=== PATIENT | female | born 2000 | race American Indian/Alaskan Native ===

== ENCOUNTER 2019-09-10 20:45 | Emergency (ER) | payer OTHER ==
[2019-09-10] MEDS ORDERED: diphenhydrAMINE 50 MG/ML VIAL IV ONE (21:07)
[2019-09-10] MEDS ORDERED: dexAMETHasone 20 MG/5 ML VIAL IV ONE (21:07)
[2019-09-10] MEDS ORDERED: ONDANSETRON 4 MG/2 ML INJ IV ONE (21:07)
[2019-09-10] MEDS ORDERED: SODIUM CHLORIDE 0.9% 1000 ML 1,000 ML IV ONE (21:07)
[2019-09-10] MEDS ORDERED: FAMOTIDINE 20 MG/2 ML INJ IV ONE (21:07)
--- NOTE | 2019-09-10 21:12 | Emergency Department Report ---
ED General Adult HPI - General Chief complaint: Allergic Reaction Stated complaint: ALLERGIC REACTION Time Seen by Provider: 09/10/19 21:05 Source: patient Mode of arrival: Ambulatory Limitations: No Limitations - History of Present Illness Initial comments: 19-year-old -Chinese female presents to the emergency room for allergic reaction. Patient comes in with swelling to her face eyes nausea mild discomfort of breathing. Patient states that she had a protein bar that was given to her by her sister. Patient does admit that she has a peanut allergy. Patient reports she is not aware if the protein bar head peanuts. Patient denies any pain. Onset/Timin -: minutes(s) (Prior to arrival) Location: face, chest, abdomen Severity scale (0 -10): 8 Consistency: constant Improves with: none Worsens with: none Associated Symptoms: denies other symptoms - Related Data Previous Rx's Medication Instructions Recorded Last Taken Type Cetirizine HCl [Zyrtec 10mg tab] 10 mg PO QDAY 10 Days #10 tablet 09/10/19 Unknown Rx EPINEPHrine [Epipen 2-Russ] 0.3 mg IJ ONCE #2 auto.injct 09/10/19 Unknown Rx Famotidine [Pepcid] 20 mg PO BID 5 Days #10 tablet 09/10/19 Unknown Rx Ondansetron [Zofran Odt] 4 mg PO Q8HR #12 tab.rapdis 09/10/19 Unknown Rx Prednisone [predniSONE 5 mg (6-Day 5 mg PO .TAPER #1 tab.ds.pk 09/10/19 Unknown Rx Pack, 21 Tabs)] Allergies Allergy/AdvReac Type Severity Reaction Status Date / Time peanut Allergy Hives Verified 09/10/19 21:06 ED Review of Systems ROS: Stated complaint: ALLERGIC REACTION Other details as noted in HPI Comment: All other systems reviewed and negative ED Past Medical Hx - Past Medical History Previous Medical History?: Yes Hx Asthma: Yes Additional medical history: Eczema - Surgical History Past Surgical History?: No - Social History Smoking Status: Former Smoker Substance Use Type: None - Medications Home Medications: Home Medications Medication Instructions Recorded Confirmed Last Taken Type Cetirizine HCl [Zyrtec 10mg tab] 10 mg PO QDAY 10 Days #10 tablet 09/10/19 Unknown Rx EPINEPHrine [Epipen 2-Russ] 0.3 mg IJ ONCE #2 auto.injct 09/10/19 Unknown Rx Famotidine [Pepcid] 20 mg PO BID 5 Days #10 tablet 09/10/19 Unknown Rx Ondansetron [Zofran Odt] 4 mg PO Q8HR #12 tab.rapdis 09/10/19 Unknown Rx Prednisone [predniSONE 5 mg (6-Day 5 mg PO .TAPER #1 tab.ds.pk 09/10/19 Unknown Rx Pack, 21 Tabs)] ED Physical Exam - General Limitations: No Limitations General appearance: alert, in distress - Head Head exam: Present: atraumatic, normocephalic - Eye Eye exam: Present: periorbital swelling - ENT ENT exam: Present: mucous membranes moist - Neck Neck exam: Present: normal inspection, full ROM - Respiratory Respiratory exam: Present: normal lung sounds bilaterally. Absent: respiratory distress - Cardiovascular Cardiovascular Exam: Present: tachycardia - GI/Abdominal GI/Abdominal exam: Present: soft. Absent: distended, tenderness - Neurological Exam Neurological exam: Present: alert, oriented X3 - Psychiatric Psychiatric exam: Present: normal affect, normal mood - Skin Skin exam: Present: erythema, urticaria ED Course Vital Signs 09/10/19 20:54 Temperature 98.2 F Pulse Rate 128 H Respiratory 20 Rate Blood Pressure 135/73 O2 Sat by Pulse 100 Oximetry ED Medical Decision Making - Medical Decision Making 19-year-old -Chinese female presents to the emergency room for allergic reaction. Patient comes in with swelling to her face eyes nausea mild discomfort of breathing. Patient states that she had a protein bar that was given to her by her sister. Patient does admit that she has a peanut allergy. Patient reports she is not aware if the protein bar head peanuts. Patient denies any pain. Patient was given the allergic reaction combo of Pepcid, Zofran, Benadryl, dexamethasone. Patient was reevaluated and states that the itching has improved she still feels nauseated. Patient also received 1 L of normal saline. Patient will be given Reglan 10 mg IV. Patient will be discharged home on a prednisone pack, instructed to take [id number] Zyrtec's or Claritin or Linnette. She will also be instructed to take Pepcid 20 mg twice a day for the next 3 days. Patient will be written a prescription for EpiPen and to use it if she has another allergic reaction with shortness of breath or feeling like her throat is closed. Critical care attestation.: If time is entered above; I have spent that time in minutes in the direct care of this critically ill patient, excluding procedure time. ED Disposition Clinical Impression: Allergic reaction to peanut Disposition: DC-01 TO HOME OR SELFCARE Is pt being admited?: No Does the pt Need Aspirin: No Condition: Stable Instructions: Urticaria (ED), Food Allergy (ED) Additional Instructions: Take medications as prescribed. Please avoid eating any foods that contain peanuts. Also look for things that contain peanut powder oil. Stay away from any nuts until you are evaluated by an radius corner machine operator. Prescriptions: EPINEPHrine [Epipen 2-Russ] 0.3 mg IJ ONCE #2 auto.injct Famotidine [Pepcid] 20 mg PO BID 5 Days #10 tablet Prednisone [predniSONE 5 mg (6-Day Pack, 21 Tabs)] 5 mg PO .TAPER #1 tab.ds.pk Ondansetron [Zofran Odt] 4 mg PO Q8HR #12 tab.rapdis Cetirizine HCl [Zyrtec 10mg tab] 10 mg PO QDAY 10 Days #10 tablet Referrals: Your, primary care provider [Other] - 3-5 Days MABEL CROWE MD [Staff Physician] - 3-5 Days Forms: Work/School Release Form(ED)
[2019-09-10] MEDS ORDERED: METOCLOPRAMIDE 10 MG/2 ML INJ IV ONE (22:11)
[2019-09-10 22:59] VITALS: BP 137/75
== END 2019-09-10 22:57 | disposition home or self-care (01) ==
LOC: ED 20:45
DX: T78.1XXA Other adverse food reactions, not elsewhere classified, initial encounter (principal); X58.XXXA Exposure to other specified factors, initial encounter
CPT/HCPCS: 96374; 96375; 99282; J1100; J1200; J2405; J2765; J7030

== ENCOUNTER 2019-12-11 21:44 | Emergency (ER) | payer OTHER ==
[2019-12-11 22:09] VITALS: BP 135/78
--- NOTE | 2019-12-12 01:54 | Emergency Department Report ---
ED Chest Pain HPI - General Chief Complaint: Chest Pain Stated Complaint: CHEST PAIN Source: patient Mode of arrival: Ambulatory Limitations: No Limitations - History of Present Illness Initial Comments: Patient is a nulliparous 19-year-old -[place]ian female with no past medical history except anxiety and chronic chest pain who presents to the ED with complaint of acute onset persistent intermittent diffuse chest wall pain with intermittent shortness of breath for the last 1 week, worse in the last 2 days. Patient states that the pain is intermittent, pressure-like and whenever it occurs she also experiences shortness of breath. Patient states that the symptoms have been going on for 6 years and she has never been worked up for any cardiac pathology although she does not have any cardiac risk factors. Patient denies dizziness, syncope, diaphoresis, nausea, vomiting, abdominal pain, neck pain, fever, chills, cough, heavy lifting, traumatic fall or back pain. Patient denies cigarette smoking, alcohol consumption or illegal drug use but admits taking oral contraceptive pills. MD Complaint: chest pain, other (pleuritic chest pain; dyspnea) -: Gradual, year(s) (6) Onset: during exertion Pain Location: substernal, left chest Pain Radiation: none Severity: moderate Severity scale (0 -10): 4 Quality: aching, pressure Improves With: rest Worsens With: exertion, palpation, movement re: dyspnea. denies: nausea, vomting, diaphoresis, sense of impending doom Other Symptoms: denies: cough, fever, syncope, rash, leg swelling, palpitations, burping Treatments Prior to Arrival: none Aspirin use within the Past 7 Days: (0) No - Related Data On Oral Contraceptives: Yes Previous Rx's Medication Instructions Recorded Last Taken Type Cetirizine HCl [Zyrtec 10mg tab] 10 mg PO QDAY 10 Days #10 tablet 09/10/19 Unknown Rx EPINEPHrine [Epipen 2-Russ] 0.3 mg IJ ONCE #2 auto.injct 09/10/19 Unknown Rx Famotidine [Pepcid] 20 mg PO BID 5 Days #10 tablet 09/10/19 Unknown Rx Ondansetron [Zofran Odt] 4 mg PO Q8HR #12 tab.rapdis 09/10/19 Unknown Rx Prednisone [predniSONE 5 mg (6-Day 5 mg PO .TAPER #1 tab.ds.pk 04/01/20 Unknown Rx Pack, 21 Tabs)] Naproxen 500 mg PO Q12H PRN #20 tablet 12/12/19 Unknown Rx hydrOXYzine PAMOATE [Vistaril] 25 mg PO Q6HR PRN #30 capsule 12/12/19 Unknown Rx Allergies Allergy/AdvReac Type Severity Reaction Status Date / Time peanut Allergy Hives Verified 09/10/19 21:06 Heart Score - HEART Score History: Slightly suspicious EKG: Normal Age: < 45 Risk factors: No known risk factors Troponin: < normal limit HEART Score: 0 - Critical Actions Critical Actions: 0-3 pts:0.9-1.7%risk of adverse cardiac event.Candidate for discharge ED Review of Systems ROS: Stated complaint: CHEST PAIN Other details as noted in HPI Constitutional: denies: chills, fever Eyes: denies: eye pain, eye discharge, vision change ENT: denies: ear pain, throat pain Respiratory: shortness of breath. denies: cough, wheezing Cardiovascular: chest pain. denies: palpitations Endocrine: no symptoms reported Gastrointestinal: denies: abdominal pain, nausea, vomiting, diarrhea Genitourinary: denies: urgency, dysuria, discharge Musculoskeletal: denies: back pain, joint swelling, arthralgia Skin: denies: rash, lesions Neurological: denies: headache, weakness, paresthesias Psychiatric: denies: anxiety, depression Hematological/Lymphatic: denies: easy bleeding, easy bruising ED Past Medical Hx - Past Medical History Hx Asthma: Yes Additional medical history: Eczema - Social History Smoking Status: Never Smoker Substance Use Type: None - Medications Home Medications: Home Medications Medication Instructions Recorded Confirmed Last Taken Type Cetirizine HCl [Zyrtec 10mg tab] 10 mg PO QDAY 10 Days #10 tablet 09/10/19 Unknown Rx EPINEPHrine [Epipen 2-Russ] 0.3 mg IJ ONCE #2 auto.injct 09/10/19 Unknown Rx Famotidine [Pepcid] 20 mg PO BID 5 Days #10 tablet 09/10/19 Unknown Rx Ondansetron [Zofran Odt] 4 mg PO Q8HR #12 tab.rapdis 09/10/19 Unknown Rx Prednisone [predniSONE 5 mg (6-Day 5 mg PO .TAPER #1 tab.ds.pk 09/10/19 Unknown Rx Pack, 21 Tabs)] Naproxen 500 mg PO Q12H PRN #20 tablet 12/12/19 Unknown Rx hydrOXYzine PAMOATE [Vistaril] 25 mg PO Q6HR PRN #30 capsule 12/12/19 Unknown Rx ED Physical Exam - General Limitations: No Limitations General appearance: alert, in no apparent distress, anxious - Head Head exam: Present: atraumatic, normocephalic - Eye Eye exam: Present: normal appearance, PERRL, EOMI. Absent: scleral icterus, conjunctival injection, nystagmus Pupils: Present: normal accommodation - ENT ENT exam: Present: normal exam, normal orophraynx, mucous membranes moist, TM's normal bilaterally, normal external ear exam - Neck Neck exam: Present: normal inspection, full ROM. Absent: tenderness - Respiratory Respiratory exam: Present: normal lung sounds bilaterally. Absent: respiratory distress, wheezes, rales, rhonchi, chest wall tenderness, accessory muscle use, decreased breath sounds, prolonged expiratory - Cardiovascular Cardiovascular Exam: Present: normal rhythm, tachycardia, normal heart sounds. Absent: systolic murmur, diastolic murmur, rubs, gallop - GI/Abdominal GI/Abdominal exam: Present: soft, normal bowel sounds. Absent: tenderness, guarding, rebound, hyperactive bowel sounds, organomegaly - Extremities Exam Extremities exam: Present: normal inspection, full ROM, normal capillary refill - Back Exam Back exam: Present: normal inspection, full ROM. Absent: tenderness, CVA tenderness (R), muscle spasm, paraspinal tenderness, vertebral tenderness - Neurological Exam Neurological exam: Present: alert, oriented X3, CN II-XII intact, normal gait, reflexes normal - Psychiatric Psychiatric exam: Present: normal affect, normal mood - Skin Skin exam: Present: warm, dry, intact, normal color. Absent: rash ED Course Vital Signs 12/11/19 21:51 Temperature 99.0 F Pulse Rate 125 H Respiratory 18 Rate Blood Pressure 135/78 O2 Sat by Pulse 100 Oximetry HOMER score - Homer Score Age > 65: (0) No Aspirin use within the Past 7 Days: (0) No 3 or more CAD Risk Factors: (0) No 2 or more Angina events in past 24 hrs: (0) No Known CAD with more than 50% Stenosis: (0) No Elevated Cardiac Markers: (0) No ST Deviation Greater than 0.5mm: (0) No HOMER Score: 0 ED Medical Decision Making - EKG Data EKG shows normal: sinus rhythm Rate: normal - EKG Data Interpretation: normal EKG 12/12/19 01:55 EKG shows normal sinus rhythm with a ventricular rate of 97 bpm, no ST or T wave abnormalities. - Radiology Data Radiology results: report reviewed, image reviewed Findings [facility] [address] [place] [address] XRay Report Signed Patient: JACY NEIL MR #: [id number] : 2000 Acct:[id number] Age/Sex: 19 / F ADM Date: 12/11/19 Loc: ED Attending Dr: Ordering Physician: KILO SMITH Date of Service: 12/12/19 Procedure(s): XR chest routine 2V Accession Number(s): [id number] cc: KILO SMITH Fluoro Time In Minutes: CHEST PA AND LATERAL VIEWS INDICATION: chest pain. COMPARISON: None. FINDINGS: Support devices: None. Heart: Within normal limits. Lungs/Pleura: No acute pulmonary or pleural findings. IMPRESSION: 1. No acute findings. Signer Name: Eugenio Mccartney MD Signed: 12/12/2019 1:58 AM Workstation Name: [id number] Transcribed By: DIVYA Dictated By: Eugenio Mccartney MD Electronically Authenticated By: Eugenio Mccartney MD Signed Date/Time: 12/12/19157 DD/ 7 TD/TT: - Medical Decision Making This is a nulliparous 19-year-old -[place]ian female with no past medical history except anxiety and chronic chest pain who presents to the ED with complaint of acute onset persistent intermittent diffuse chest wall pain with intermittent shortness of breath for the last 1 week, worse in the last 2 days. Patient states that the pain is intermittent, pressure-like and whenever it occurs she also experiences shortness of breath. Patient states that the symptoms have been going on for 6 years and she has never been worked up for any cardiac pathology although she does not have any cardiac risk factors. In the ED, patient is alert and oriented x3 and is not in distress, anxious, afebrile and tachycardic in triage. Chest x-ray shows no acute cardiopulmonary abnormalities or pneumonitis. Troponin levels normal. EKG shows normal sinus rhythm with ventricular rate of [address] or T wave abnormalities. Based on the patient's history of chronic diffuse chest wall pain and the absence of or pulmonary risk factors with heart score of 0, patient symptoms are likely due to anxiety or chest wall muscle strain. Although the patient initially presented with tachycardia, and on oral contraceptive pills, the fact that the symptoms have been going on for 6 years rules out any PE. Therefore other differential diagnosis considered during this visit include ACS, pneumonia, anxiety, costochondritis, GERD and pericarditis. The tachycardia resolved with no treatment in the ED showing that patient symptoms are likely anxiety driven than cardiopulmonary pathology. Patient was discharged home on medications for anxiety Vistaril and was advised to follow-up with her primary care physician in 5 to 7 days for reevaluation or return to the ED immediately if symptoms get worse. - Differential Diagnosis ACS; Pneumonia; PE; Anxiety; Costochondritis Critical care attestation.: If time is entered above; I have spent that time in minutes in the direct care of this critically ill patient, excluding procedure time. ED Disposition Clinical Impression: Anxiety as acute reaction to exceptional stress, Chronic chest wall pain Disposition: TO HOME OR SELFCARE Is pt being admited?: No Does the pt Need Aspirin: No Condition: Stable Instructions: Chest Pain (ED), Costochondritis (ED), Generalized Anxiety Disorder (ED) Additional Instructions: All lab test results and chest x-ray showed no acute cardiopulmonary abnormalities. Therefore your symptoms are likely due to anxiety and chest wall muscle strain. Therefore take medication with food, drink plenty of fluids and follow-up with your primary care physician in 5 to 7 days for reevaluation or return to the ED immediately if symptoms get worse. Prescriptions: Naproxen 500 mg PO Q12H PRN #20 tablet PRN Reason: Pain , Severe (7-10) hydrOXYzine PAMOATE [Vistaril] 25 mg PO Q6HR PRN #30 capsule PRN Reason: Anxiety Referrals: [facility] [Provider Group] - 3-5 Days Time of Disposition: 02:04 Print Language: SINHALA
--- NOTE | 2019-12-12 02:03 | XRay Report ---
CHEST PA AND LATERAL VIEWS INDICATION: chest pain. COMPARISON: None. FINDINGS: Support devices: None. Heart: Within normal limits. Lungs/Pleura: No acute pulmonary or pleural findings. IMPRESSION: 1. No acute findings. Signer Name: Eugenio Mccartney MD Signed: 12/12/2019 1:58 AM Workstation Name: [id number]
== END 2019-12-12 02:29 | disposition home or self-care (01) ==
LOC: ED 21:44
DX: F43.8 Other reactions to severe stress (principal); F41.9 Anxiety disorder, unspecified; R07.89 Other chest pain; G89.29 Other chronic pain; J45.909 Unspecified asthma, uncomplicated; Z91.010 Allergy to peanuts; Z79.899 Other long term (current) drug therapy
CPT/HCPCS: 36415; 71046; 84484; 84703; 93005; 99283

== ENCOUNTER 2020-05-02 11:29 | Emergency (ER) | payer OTHER ==
--- NOTE | 2020-05-02 13:29 | XRay Report ---
CHEST 2 VIEWS INDICATION / CLINICAL INFORMATION: shortness of breath. COMPARISON: 12/12/2019 FINDINGS: SUPPORT DEVICES: None. HEART / MEDIASTINUM: No significant abnormality. LUNGS / PLEURA: No significant pulmonary or pleural abnormality. No pneumothorax. ADDITIONAL FINDINGS: No significant additional findings. IMPRESSION: 1. No acute findings. Signer Name: Miles Arndt MD Signed: 05/02/2020 1:25 PM Workstation Name: [id number]
[2020-05-02 13:53] LABS: Basophils % (Auto) 0.5 % (0.0-1.8); Eosinophils % (Auto) 0.4 % (0.0-4.3); Hematocrit 40.6 % (30.3-42.9); Hemoglobin 12.8 gm/dl (10.1-14.3); Lymphocytes # (Auto) 1.2 K/mm3 (1.2-5.4); Lymphocytes % (Auto) 16.7 % (13.4-35.0); Mean Corpuscular HGB Conc 32 % (30-34); Mean Corpuscular Volume 72 fl (79-97); Monocytes # (Auto) 0.4 K/mm3 (0.0-0.8); Monocytes % (Auto) 5.9 % (0.0-7.3); Platelet Count 289 K/mm3 (140-440); Red Blood Count 5.61 M/mm3 (3.65-5.03); Red Cell Distribution Width 13.7 % (13.2-15.2)
[2020-05-02 14:08] LABS: Alanine Aminotransferase 13 units/L (7-56); Albumin 4.4 g/dL (3.9-5); BUN/Creatinine Ratio 7; Blood Urea Nitrogen 5 mg/dL (7-17); Calcium 9.5 mg/dL (8.4-10.2); Hemolysis Index 6
--- NOTE | 2020-05-02 14:25 | Emergency Department Report ---
ED General Adult HPI - General Chief complaint: Dyspnea/Respdistress Stated complaint: SAIRA Time Seen by Provider: 05/02/20 13:07 Source: patient Mode of arrival: Ambulatory Limitations: No Limitations - History of Present Illness Initial comments: 19-year-old -[place] female patient presents with complaints of intermittent headaches x4 months. Patient states the headaches are always left- sided and when they occur she gets shortness of breath and left eye vision changes. She denies any current headache or prior history of migraines. Addy mayo also denies any head injuries, current vision changes, dizziness, numbness/tingling/weakness in her limbs, difficulty with speech/ambulation, confusion, or memory loss, or history of cancer. Past medical history includes anxiety/depression and asthma. Patient states she discussed the headaches with her primary care provider who stated they were due to stress. Patient states the headache normally resolves with ibuprofen or Tylenol - Related Data Previous Rx's Medication Instructions Recorded Last Taken Type Cetirizine HCl [Zyrtec 10mg tab] 10 mg PO QDAY 10 Days #10 tablet 09/10/19 Unknown Rx EPINEPHrine [Epipen 2-Russ] 0.3 mg IJ ONCE #2 auto.injct 09/10/19 Unknown Rx Famotidine [Pepcid] 20 mg PO BID 5 Days #10 tablet 09/10/19 Unknown Rx Ondansetron [Zofran Odt] 4 mg PO Q8HR #12 tab.rapdis 09/10/19 Unknown Rx Prednisone [predniSONE 5 mg (6-Day 5 mg PO .TAPER #1 tab.ds.pk 09/10/19 Unknown Rx Pack, 21 Tabs)] Naproxen 500 mg PO Q12H PRN #20 tablet 12/12/19 Unknown Rx hydrOXYzine PAMOATE [Vistaril] 25 mg PO Q6HR PRN #30 capsule 12/12/19 Unknown Rx Allergies Allergy/AdvReac Type Severity Reaction Status Date / Time peanut Allergy Hives Verified 09/10/19 21:06 ED Review of Systems ROS: Stated complaint: SAIRA Other details as noted in HPI Constitutional: denies: chills, fever Eyes: as per HPI. denies: eye pain Respiratory: denies: cough, shortness of breath Cardiovascular: denies: chest pain Endocrine: denies: excessive sweating, flushing Gastrointestinal: denies: abdominal pain, nausea, vomiting Genitourinary: denies: urgency, dysuria, frequency Skin: denies: change in color Neurological: as per HPI. denies: weakness, numbness, paresthesias, confusion, abnormal gait, vertigo Psychiatric: anxiety. denies: auditory hallucinations, visual hallucinations Hematological/Lymphatic: denies: as per HPI, easy bruising, swollen glands ED Past Medical Hx - Past Medical History Previous Medical History?: Yes Hx Asthma: Yes Additional medical history: Eczema - Surgical History Past Surgical History?: No - Social History Smoking Status: Never Smoker Substance Use Type: None - Medications Home Medications: Home Medications Medication Instructions Recorded Confirmed Last Taken Type Cetirizine HCl [Zyrtec 10mg tab] 10 mg PO QDAY 10 Days #10 tablet 09/10/19 Unknown Rx EPINEPHrine [Epipen 2-Russ] 0.3 mg IJ ONCE #2 auto.injct 09/10/19 Unknown Rx Famotidine [Pepcid] 20 mg PO BID 5 Days #10 tablet 09/10/19 Unknown Rx Ondansetron [Zofran Odt] 4 mg PO Q8HR #12 tab.rapdis 09/10/19 Unknown Rx Prednisone [predniSONE 5 mg (6-Day 5 mg PO .TAPER #1 tab.ds.pk 09/10/19 Unknown Rx Pack, 21 Tabs)] Naproxen 500 mg PO Q12H PRN #20 tablet 12/12/19 Unknown Rx hydrOXYzine PAMOATE [Vistaril] 25 mg PO Q6HR PRN #30 capsule 12/12/19 Unknown Rx ED Physical Exam - General Limitations: No Limitations General appearance: alert, in no apparent distress - Head Head exam: Present: atraumatic, normocephalic - Eye Eye exam: Present: normal appearance. Absent: PERRL - ENT ENT exam: Present: mucous membranes moist - Neck Neck exam: Present: normal inspection - Respiratory Respiratory exam: Present: normal lung sounds bilaterally. Absent: respiratory distress - Cardiovascular Cardiovascular Exam: Present: regular rate, normal rhythm. Absent: systolic m urmur, diastolic murmur, rubs, gallop - GI/Abdominal GI/Abdominal exam: Present: soft, normal bowel sounds - Extremities Exam Extremities exam: Present: normal inspection - Back Exam Back exam: Present: normal inspection - Neurological Exam Neurological exam: Present: alert, oriented X3, CN II-XII intact. Absent: normal gait, motor sensory deficit - Expanded Neurological Exam Expanded Cerebellar function: Finger to Nose: Normal, Heel to Crocker: Normal, Romberg: Normal Sensory exam: Upper Extremity Light Touch: Normal, Lower Extremity Light Touch: Normal Motor strength exam: RUE: 5, LUE: 5, RLE: 5, LLE: 5 - Psychiatric Psychiatric exam: Present: normal affect, normal mood - Skin Skin exam: Present: warm, dry, intact, normal color. Absent: rash ED Course Vital Signs 05/02/20 05/02/20 12:01 14:28 Temperature 99.2 F Pulse Rate 125 H 90 Respiratory 20 14 Rate Blood Pressure 154/82 128/65 O2 Sat by Pulse 99 99 Oximetry ED Medical Decision Making - Lab Data Result diagrams: 05/02/20 13:20 05/02/20 13:20 Lab Results 05/02/20 05/02/20 05/02/20 Range/Units 13:20 13:20 13:20 WBC 7.0 (4.5-11.0) K/mm3 RBC 5.61 H (3.65-5.03) M/mm3 Hgb 12.8 (10.1-14.3) gm/dl Hct 40.6 (30.3-42.9) % MCV 72 L (79-97) fl MCH 23 L (28-32) pg MCHC 32 (30-34) % RDW 13.7 (13.2-15.2) % Plt Count 289 (140-440) K/mm3 Lymph % (Auto) 16.7 (13.4-35.0) % Mobile % (Auto) 5.9 (0.0-7.3) % Eos % (Auto) 0.4 (0.0-4.3) % Baso % (Auto) 0.5 (0.0-1.8) % Lymph # (Auto) 1.2 (1.2-5.4) K/mm3 Mobile # (Auto) 0.4 (0.0-0.8) K/mm3 Eos # (Auto) 0.0 (0.0-0.4) K/mm3 Baso # (Auto) 0.0 (0.0-0.1) K/mm3 Seg Neutrophils % 76.5 H (40.0-70.0) % Seg Neutrophils # 5.3 (1.8-7.7) K/mm3 Sodium 140 (137-145) mmol/L Potassium 3.9 (3.6-5.0) mmol/L Chloride 106.7 (98-107) mmol/L Carbon Dioxide 22 (22-30) mmol/L Anion Gap 15 mmol/L BUN 5 L (7-17) mg/dL Creatinine 0.7 (0.6-1.2) mg/dL Estimated GFR > 60 ml/min BUN/Creatinine Ratio 7 % Glucose 72 (65-100) mg/dL Calcium 9.5 (8.4-10.2) mg/dL Total Bilirubin 0.20 (0.1-1.2) mg/dL AST 17 (5-40) units/L ALT 13 (7-56) units/L Alkaline Phosphatase 70 (35-129) units/L Total Protein 8.0 (6.3-8.2) g/dL Albumin 4.4 (3.9-5) g/dL Albumin/Globulin Ratio 1.2 % HCG, Qual Negative (Negative) - Radiology Data Radiology results: report reviewed CT BRAIN: 05/02/2020 INDICATION / CLINICAL INFORMATION: Right-sided headache. Paresthesias.. COMPARISON: None available. FINDINGS: BRAIN/INTRACRANIAL STRUCTURES: Unenhanced CT images of the brain demonstrate no evidence of acute intracranial abnormality. Ventricles and sulci are normal in size and shape. There is no evidence of hemorrhage or mass. There are no abnormal extra-axial fluid collections. CHEST 2 VIEWS INDICATION / CLINICAL INFORMATION: shortness of breath. COMPARISON: 12/12/2019 FINDINGS: SUPPORT DEVICES: None. HEART / MEDIASTINUM: No significant abnormality. LUNGS / PLEURA: No significant pulmonary or pleural abnormality. No pneumothorax. ADDITIONAL FINDINGS: No significant additional findings. IMPRESSION: 1. No acute findings. - Medical Decision Making 19-year-old -[place] female patient presents with complaints of intermittent headaches x4 months. Patient states the headaches are always left- sided and when they occur she gets shortness of breath and left eye vision changes. She denies any current headache or prior history of migraines. Patient also denies any head injuries, current vision changes, dizziness, numbness/tingling/weakness in her limbs, difficulty with speech/ambulation, confusion, or memory loss, or history of cancer. Past medical history includes anxiety/depression and asthma. Patient states she discussed the headaches with her primary care provider who stated they were due to stress. Patient states the headache normally resolves with ibuprofen or Tylenol. Neuro exam is normal. CT head is without acute findings. No significant abnormalities are noted on labs. Given chronicity of patient's symptoms and normal imaging today, recommend follow-up with neurology. Referral provided. She is well-appearing and denies any pain. Her vitals are normal and she is stable for discharge home. Strict return precautions were discussed in detail with patient who verbalizes understanding. Critical care attestation.: If time is entered above; I have spent that time in minutes in the direct care of this critically ill patient, excluding procedure time. ED Disposition Clinical Impression: Migraine headache with aura Qualifiers: Status migrainosus presence: without status migrainosus Intractability: not intractable Qualified Code(s): G43.109 - Migraine with aura, not intractable, without status migrainosus Disposition: DC- TO HOME OR SELFCARE Is pt being admited?: No Condition: Stable Instructions: Migraine Headache Referrals: YVETTE MARION MD [Referring] - 3-5 Days
[2020-05-02 14:29] VITALS: BP 128/65
--- NOTE | 2020-05-02 16:23 | Cat Scan Report ---
CT BRAIN: 05/02/2020 INDICATION / CLINICAL INFORMATION: Right-sided headache. Paresthesias.. COMPARISON: None available. FINDINGS: BRAIN/INTRACRANIAL STRUCTURES: Unenhanced CT images of the brain demonstrate no evidence of acute int racranial abnormality. Ventricles and sulci are normal in size and shape. There is no evidence of hemorrhage or mass. There are no abnormal extra-axial fluid collections. EXTRACRANIAL STRUCTURES: Unremarkable. IMPRESSION: Negative unenhanced CT of the brain. All CT scans at this location are performed using dose reduction to ALARA by means of automated expos ure control. Signer Name: Alexander Priest MD Signed: 05/02/2020 4:18 PM Workstation Name: [id number]
== END 2020-05-02 17:38 | disposition home or self-care (01) ==
LOC: ED 11:29
DX: G43.109 Migraine with aura, not intractable, without status migrainosus (principal); J45.909 Unspecified asthma, uncomplicated; Z98.890 Other specified postprocedural states; Z91.010 Allergy to peanuts
CPT/HCPCS: 36415; 70450; 71046; 80053; 84703; 85025